=== PATIENT | female | born 1980 ===

== ENCOUNTER 2017-02-16 02:45 | Inpatient (IN) | payer OTHER ==
--- NOTE | ~2017-02-16 | HP ---
Unit #: [id number] #: [id number] Patient: KAVON DENNIS [id number] [address] [place], [place] [address] [id number] MR#: [id number] NAME: KAVON DENNIS ROOM: [facility] Age: 37 Sex: F Admission Date: 02/15/2017 : 1980 Attending Physician: Maddie Bustamante M.D. Primary Care Physician: No Primary Care Physician HISTORY AND PHYSICAL CHIEF COMPLAINT Abdominal pain, liver abnormalities. HISTORY This pleasant 37-year-old female was transferred from [place] emergency department for abdominal pain. The patient underwent a laparoscopic cholecystectomy last week at [facility]. I'm told that her bilirubin ranged between 1.3 to 1.8 around that time. HIDA scan preformed before the operation showed nonvisualization of the gallbladder, and gallbladder ultrasound showed multiple stones. Patient was discharged on Augmentin. States that after her discharge she began to experience generalized pruritus, which has worsened. Dark urine. Yesterday began to experience mid to left upper quadrant pain. Went back to [place] emergency department where her biliary was 2.4, alk phos 165. A call was made to her surgeon who requested that the patient be transferred to this facility and GI consultation be obtained. The patient denies excess amounts of Tylenol, alcohol, or use of any injectable drugs in the past. No previous history of liver disease. She is status post laparoscopic gastric bypass about ten years ago. PAST MEDICAL HISTORY 1. Previous history of AODM, now diet controlled. 2. Anxiety. 3. Gastric bypass, which was laparoscopically performed in [place]. 4. Laparoscopic cholecystectomy last week. ALLERGIES None. HOME MEDICATIONS Celexa 40 mg daily; Zyrtec 10 mg daily; multivitamin; Augmentin 875 mg b.i.d. for two more days. FAMILY HISTORY Negative for liver disease. SOCIAL HISTORY The patient lives with her and children. She stopped smoking eight years ago. Seldom drinks alcohol. REVIEW OF SYSTEMS Notable for increasing abdominal pain, pruritus, dark urine, previous Unit #: [id number] #: [id number] Patient: KAVON DENNIS history of diabetes, above mentioned surgery, anxiety. All other systems were reviewed and are otherwise negative. PHYSICAL EXAMINATION GENERAL: Very pleasant 37-year-old female currently in no acute distress. VITAL SIGNS: Prior to transfer, temperature 98, blood pressure 112/83, O2 saturation 100% on room air, pulse 61. HEENT: Eyes - PERRLA. Extraocular muscles are intact. Pharynx is benign. NECK: Supple without adenopathy or thyromegaly. CHEST: Clear. BACK: Without CVA tenderness. CARDIAC: Normal S1 and S2 without S3, S4 or murmur. ABDOMEN: Bowel sounds are present. Clean incision sites, which are healing. Patient is mildly tender in the epigastric and left upper quadrant without rebound or guarding. No hepatosplenomegaly or masses. EXTREMITIES: Without clubbing, cyanosis or edema. Pedal pulses are present. NEUROLOGIC: Patient is awake, alert, and oriented. Cranial nerves are intact. Equal strength throughout. DIAGNOSTIC STUDIES LABS: Prior to transfer - hematocrit 32.5, normal white count and platelet count. SMA 12 - glucose 134, bilirubin 2.4, alk phos 165, AST 52, ALT 100. Normal amylase and lipase. Urinalysis - specific gravity greater than 1.030 with 10-25 red cells, 2+ bilirubin noted on dipstick and positive blood in dipstick. However, patient currently is menstruating. IMAGING STUDIES: CT scan of the abdomen and pelvis essentially negative. Thickening of the endometrium of the uterus noted along with a likely left ovarian cyst. This is all likely related to the patent's menstrual cycle. She currently is menstruating. ASSESSMENT 1. Upper abdominal pain with elevated LFTs, status post laparoscopic cholecystectomy one week ago. Possibly this could represent a retained stone, versus some sort of hepatitis. 2. General pruritus, which more likely is related to antibiotic as opposed to hyperbilirubinemia as the bilirubin currently is 2.4 only. 3. Status post laparoscopic gastric bypass. 4. Anxiety and Celexa. 5. What appears to be a left ovarian cyst and increase endometrial lining likely related to the patient's menstrual cycle. However, I did tell the patient as an outpatient, it is recommended that she get a pelvic ultrasound. PLANS 1. IV fluids and supportive treatment. 2. Change Augmentin to cefotetan for two more days given intense pruritus. 3. Recheck labs this morning and check hepatitis profile. 4. GI and surgical consultation. 5. SCDs for DVT prophylaxis. 6. H2 cr. 7. 1. Unit #: [id number] #: [id number] Patient: KAVON DENNIS Dictated by Maddie Bustamante M.D. AML/ts TD: 02/16/2017 05:52 JOB #: [id number] HISTORY AND PHYSICAL Page 1 of 1 X Maddie Bustamante MD X HISTORY AND PHYSICAL
--- NOTE | ~2017-02-16 | OR ---
Unit #: [id number] #: [id number] Patient: KAVON DENNIS [id number] [address] [place], [place] [address] [id number] I MR#: [id number] NAME: KAVON DENNIS ROOM: [facility] Date of Procedure: 02/17/2017 Admission Date: 02/16/2017 Surgeon: Jake Carey M.D. : 1980 Attending Physician: Thea Lozano M.D. OPERATIVE REPORT PROCEDURES PERFORMED Esophagogastroduodenoscopy to anastomosis and small bowel loops. Endoscopic retrograde cholangiopancreatography not performed. INDICATIONS FOR PROCEDURE The patient was brought in for an EGD and ERCP for possible CBD stones and obstructive jaundice. MEDICATIONS Monitored anesthesia. POSTOPERATIVE FINDINGS 1. EGD exam shows a normal esophagus. 2. The patient has evidence of previous gastric bypass surgery with an anastomosis as well as 2 afferent and efferent loops. Anastomosis and loops were intact. Gastric mucosa appears normal. Esophagus was normal also. 3. ERCP could not be performed as there was no direct access to the ampulla. PLAN We will consider having an MRCP and if needed percutaneous access to the bile duct. DESCRIPTION OF PROCEDURE The patient was explained of the procedure, risks, and benefits along with risks and benefits of anesthesia. She was brought to the endoscopy room. Propofol anesthesia was given. Bite block was placed. The scope was passed down the mouth into the esophagus, stomach through the anastomosis into the two loops of the small bowel. Both loops of the small bowel were intact. Anastomosis was intact. Stomach shows normal mucosa. Esophagus was normal. Gently, the scope was pulled out. She tolerated it well. Dictated by... Neto Parekh/ирина TD: 02/18/2017 01:57 JOB #: [id number] Unit #: [id number] #: [id number] Patient: KAVON DENNIS OPERATIVE REPORT Page 1 of 1 X Jake Carey MD X PROCEDURE OPERATIVE NOTE
--- NOTE | ~2017-02-16 | CO ---
Unit #: [id number] #: [id number] Patient: KAVON DENNIS [id number] [facility]. [place] [id number] [facility]. [place], [place] [address] [id number] MR#: [id number] NAME: KAVON DENNIS ROOM: [facility] Age: 37 Sex: F Admission Date: 02/15/2017 : 1980 Attending Physician: Thea Lozano M.D. Primary Care Physician: No Primary Care Physician Consultation Date: 02/16/2017 CONSULTATION REPORT BRIEF SUMMARY The patient is a 37-year-old white female who is a week status post laparoscopic cholecystectomy for acute cholecystitis. This was done by Dr. Zapata at [facility] and she had done well up until yesterday when she developed significant right upper quadrant mid epigastric abdominal pain. She also noted that her urine was dark and almost dark as [employer]. She has had no fever, no chills and basically no other symptoms. She did have some slight nausea. She has had no diarrhea and no constipation. At the ER at [facility], she was noted to have increased total bilirubin to 2.4 with an alkaline phosphatase of 165. Her a.m. labs are pending presently. REVIEW OF SYSTEMS A 12-system review has been performed which is nonremarkable except for that in the present illness. PAST MEDICAL HISTORY Unchanged since her admission a week ago. PHYSICAL EXAMINATION VITAL SIGNS: The patient is afebrile. Pulse is 56. Vital signs are stable. GENERAL DESCRIPTION: The patient is a well developed 37-year-old white female in no acute distress. HEENT: Nonremarkable. NECK: Supple. CHEST: There is equal bilateral expansion with bilateral equal breath sounds. Lungs clear bilaterally. HEART: Regular rhythm without murmurs or gallops. There is no evidence of cardiomegaly clinically. ABDOMEN: Soft, mildly tender in the mid epigastrium and right upper quadrant without palpable mass or organomegaly. There is no gross abdominal distention. No guarding, rebound. Active bowel sounds present. Her wounds are clean and healing with solomon still in place and no evidence of any infection or herniation. EXTREMITIES: With full range of motion without limitation. There is no evidence of peripheral edema. BACK: No CVA tenderness. NEUROLOGIC: Grossly intact. DIAGNOSTIC STUDIES LABORATORY: Her urinalysis did show some hematuria. IMPRESSION Unit #: [id number] #: [id number] Patient: KAVON DENNIS Patient has elevated liver function tests status post laparoscopic cholecystectomy. That could be related along with her upper abdominal pain with the retained common duct stone. Would suggest a GI consult at this time and observation. CT scan revealed no evidence of any fluid collections in the subhepatic space or other abnormalities. Dictated by... Juancho Montesinos Jr. MRomie. RUDDY/eugene TD: 02/16/2017 09:53 JOB #: [id number] CONSULTATION REPORT Page 1 of 1 X Juancho Montesinos MD X CONSULTATION REPORT
--- NOTE | ~2017-02-16 | DS ---
Unit #: [id number] #: [id number] Patient: KAVON DENNIS [id number] [address] [place], [place] [address] [id number] MR#: [id number] NAME: KAVON DENNIS ROOM: 470 Age: 37 Sex: F Admission Date: 02/16/2017 : 1980 Discharge Date: 02/19/2017 Attending Physician: Thea Lozano M.D. Primary Care Physician: Primary Care Physician No DISCHARGE SUMMARY FINAL DIAGNOSES 1. Transaminitis and elevated bilirubin. 2. Anemia. SECONDARY DIAGNOSES 1. Anxiety previously. 2. Adult onset diabetes mellitus, diet controlled. 3. History of gastric bypass and status post laparoscopic cholecystectomy. CONSULTATIONS 1. [facility] - Dr. Webber 2. Gastroenterology - Dr. Carey [facility] COURSE The patient is a 37-year-old female, who presented with elevated liver function tests, pruritus, status post laparoscopic cholecystectomy. She was transferred here from an outside hospital for evaluation. She was seen in conjunction with GI. ERCP was attempted but this was unsuccessful. A MRCP was performed and it shows mild prominence of the common duct without evidence of choledocholithiasis or obstructed mass. It was thought that this represented physiologic change. Issues resolved symptomatically. She was seen by GI. Hepatitis panel was obtained. She was evaluated and deemed stable for discharge for outpatient management with symptomatic treatment. MEDICATIONS ON DISCHARGE Include: 1. Zofran 4 mg p.o. q.6 hourly p.r.n. 2. Benadryl 25 mg p.o. q.8 hourly p.r.n. 3. Bentyl 20 mg p.o. q.8 hourly p.r.n. 4. Celexa 40 mg p.o. daily 5. Zyrtec 10 mg p.o. daily 6. Multivitamin one tablet p.o. daily FOLLOWUP 1. Follow up with primary care physician in the next 3 to 5 days. 2. Follow up with GI, outpatient in about two weeks. CONDITION ON DISCHARGE She will be discharged in stable condition. Time spent coordinating discharge about twenty-three minutes. Unit #: [id number] #: [id number] Patient: KAVON DENNIS Dictated by... Neto Madison TD: 02/19/2017 11:47 JOB #: [id number] DISCHARGE SUMMARY Page 1 of 1 X Jaylon Gordon MD X DISCHARGE SUMMARY
--- NOTE | ~2017-02-16 | MR145 ---
[facility] A Service of [facility] RADIOLOGY TEXT RESULTS PATIENT: KAVON DENNIS LOCATION: [facility] 470 : 82 UNIT #: [id number] AGE: [address]: Thea Lozano MD SEX: F ORDER DR: [id number] [facility] [address] [facility]. [place], [place] [address] [id number] I MR#: [id number] Acc #: [id number] NAME: KAVON DENNIS : 1980 SEX: F STUDY DATE/TIME: 02/17/2017 16:10 UNIT: [facility] ROOM: [facility] STUDY DESCRIPTION: MR MRCP WWo Contrast Attending Physician: Thea Lozano M.D. Ordering Physician: Jake Carey M.D. Primary Care Physician: No Primary Care Physician MRI CENTER REPORT This report is preliminary unless electronic signature is present. EXAM MRI abdomen with and without contrast, MRCP protocol. INDICATIONS Cholecystectomy 1 week ago. Persistent upper abdominal pain since cholecystectomy. Elevated bilirubin level. PROCEDURE Multiplanar, multisequence MR imaging of the abdomen prior to and following 12 mL of MultiHance. COMPARISON Comparison CT from 02/15/2017. FINDINGS ABDOMEN WITHOUT CONTRAST: Patient is status post cholecystectomy. There is no fluid in the gallbladder fossa. The common duct measures 7 mm in diameter. There is no significant intrahepatic bile duct dilation. No evidence for obstructing stone or mass. Pancreatic duct nondilated. The spleen, kidneys, adrenal glands, pancreas, bowel loops have normal signal. ABDOMEN WITH CONTRAST: No abnormal enhancement in the abdomen. IMPRESSION 1. Previous cholecystectomy. Mild prominence of the common duct without evidence for choledocholithiasis or obstructing mass. This probably represents physiologic change. 2. Otherwise negative MRI of the abdomen. Dictated by... [facility] A Service [facility] RADIOLOGY TEXT RESULTS PATIENT: KAVON DENNIS LOCATION: [facility] 470 : 82 UNIT #: [id number] AGE: [address]: Thea Lozano MD SEX: F ORDER DR: Leon Medley M.D. THIS IS AN ELECTRONICALLY VERIFIED REPORT Leon Medley M.D. at 02/20/2017 9:45 AM EVELYN/joaquin TD: 02/17/2017 19:49 JOB #: [id number] MRI CENTER REPORT Page 1 of 1 COPY
[2017-02-16] MEDS ORDERED: CITALOPRAM HBR40 MG PO (03:10)
[2017-02-16] MEDS ORDERED: ZYRTEC10 M1 PO (03:10)
[2017-02-16] MEDS ORDERED: MULTIPLE VITAM1 EAC1 PO (03:11)
[2017-02-16] MEDS ORDERED: AUGMENTIN PO (03:11)
[2017-02-16] MEDS ORDERED: HYDROCODON-ACE1 EAC9 PO (03:12)
[2017-02-16 07:18] LABS: HEMATOCRIT 32.3 % (35.0-45.0); HEMOGLOBIN 10.5 gm/dL (12.0-16.0); MEAN CELL VOLUME 82.9 FL (83-96); MEAN CORPUSCULAR HEMOGLOBIN 26.8 PG (28-34); MEAN CORPUSCULAR HGB CONC 32.4 g/dL (30-36); MEAN PLATELET VOLUME 8.3 FL (6.5-11.5); RED BLOOD COUNT 3.9 X10e (3.90-5.30); RED CELL DISTRIBUTION WIDTH 15.3 % (11.0-15.5); WHITE BLOOD COUNT 6.5 X10e3 (4.0-10.5)
[2017-02-16 07:34] LABS: PARTIAL THROMBOPLASTIN TIME 23.3 SECONDS (23.5-31.3); PROTHROMBIN TIME (PATIENT) 10.7 SECONDS (9.6-11.5)
[2017-02-16 07:54] LABS: ALBUMIN SERUM 2.9 g/dL (3.5-5.0); BILIRUBIN,TOTAL 1.9 mg/dL (0.2-2.0); BUN/CREATININE RATIO 17.5; CALCIUM SERUM 8.6 mg/dL (8.4-10.2); CREATININE SERUM 0.4 mg/dL (0.6-1.4); POTASSIUM 3.4 mmol/L (3.5-5.1); PROTEIN TOTAL SERUM 5.9 g/dL (6.0-8.3)
[2017-02-17 04:11] LABS: BASOPHIL% 0.8 % (0-2.5); DIFF IND NO; EOSINOPHIL# 0.1 X10e3 (0-0.7); EOSINOPHIL% 1.4 % (0.0-7.0); HEMATOCRIT 32.7 % (35.0-45.0); HEMOGLOBIN 10.8 gm/dL (12.0-16.0); LYMPHOCYTE# 2.6 X10e3 (1.0-3.5); LYMPHOCYTE% 47.7 % (17.0-45.0); MEAN CELL VOLUME 82.6 FL (83-96); MEAN CORPUSCULAR HEMOGLOBIN 27.2 PG (28-34); MEAN CORPUSCULAR HGB CONC 32.9 g/dL (30-36); MEAN PLATELET VOLUME 8.5 FL (6.5-11.5); MONOCYTE# 0.6 X10e3 (0-1.0); MONOCYTE% 10.7 % (3.0-12.0); NEUTROPHIL# 2.2 X10e3 (1.5-7.1); NEUTROPHIL% 39.4 % (40-75); PLATELET COUNT 253 X10e3 (140-420); RED BLOOD COUNT 3.96 X10e (3.90-5.30); RED CELL DISTRIBUTION WIDTH 15.1 % (11.0-15.5); WHITE BLOOD COUNT 5.5 X10e3 (4.0-10.5)
[2017-02-17 04:34] LABS: ALBUMIN SERUM 3.2 g/dL (3.5-5.0); BILIRUBIN,TOTAL 2.4 mg/dL (0.2-2.0); CALCIUM SERUM 8.8 mg/dL (8.4-10.2); CREATININE SERUM 0.5 mg/dL (0.6-1.4); GLOM FILT RATE Estimated 125.4 mL/min (>60); POTASSIUM 3.6 mmol/L (3.5-5.1); PROTEIN TOTAL SERUM 6.5 g/dL (6.0-8.3)
[2017-02-18 03:46] LABS: BASOPHIL% 0.6 % (0-2.5); DIFF IND NO; EOSINOPHIL% 0.7 % (0.0-7.0); HEMOGLOBIN 11.1 gm/dL (12.0-16.0); LYMPHOCYTE# 2.2 X10e3 (1.0-3.5); LYMPHOCYTE% 33.4 % (17.0-45.0); MEAN CELL VOLUME 82.5 FL (83-96); MEAN CORPUSCULAR HEMOGLOBIN 26.8 PG (28-34); MEAN CORPUSCULAR HGB CONC 32.5 g/dL (30-36); MEAN PLATELET VOLUME 8.4 FL (6.5-11.5); MONOCYTE# 0.7 X10e3 (0-1.0); MONOCYTE% 10.8 % (3.0-12.0); NEUTROPHIL# 3.6 X10e3 (1.5-7.1); NEUTROPHIL% 54.5 % (40-75); PLATELET COUNT 282 X10e3 (140-420); RED BLOOD COUNT 4.13 X10e (3.90-5.30); RED CELL DISTRIBUTION WIDTH 15.5 % (11.0-15.5); WHITE BLOOD COUNT 6.7 X10e3 (4.0-10.5)
[2017-02-18 04:10] LABS: ALBUMIN SERUM 3.3 g/dL (3.5-5.0); BILIRUBIN,TOTAL 2.3 mg/dL (0.2-2.0); CALCIUM SERUM 8.6 mg/dL (8.4-10.2); CREATININE SERUM 0.5 mg/dL (0.6-1.4); GLOM FILT RATE Estimated 125.4 mL/min (>60); POTASSIUM 3.9 mmol/L (3.5-5.1); PROTEIN TOTAL SERUM 6.5 g/dL (6.0-8.3)
[2017-02-18 07:32] LABS: HA AB IGM (HEPPAN) Nonreactive (()); HB CORE AB IGM (HEPPAN) Nonreactive (Nonreactive); HB S AG (HEPPAN) Nonreactive (Nonreactive); HEP C AB (HEPPAN) Nonreactive (Nonreactive); HEP C AB SIGNAL TO CUTOFF 0.07 ratio (<1.00)
[2017-02-19 02:16] LABS: ALBUMIN SERUM 3.2 g/dL (3.5-5.0); BILIRUBIN,TOTAL 2.6 mg/dL (0.2-2.0); BUN/CREATININE RATIO 21.66; CALCIUM SERUM 8.9 mg/dL (8.4-10.2); CREATININE SERUM 0.6 mg/dL (0.6-1.4); GLOM FILT RATE Estimated 118.1 mL/min (>60); POTASSIUM 4.2 mmol/L (3.5-5.1); PROTEIN TOTAL SERUM 6.5 g/dL (6.0-8.3)
[2017-02-19] MEDS ORDERED: ZOFRAN PO (11:14)
[2017-02-19] MEDS ORDERED: FAMOTIDINE PO (11:15)
[2017-02-19] MEDS ORDERED: BENADRYL25 M3 PO (11:16)
[2017-02-19] MEDS ORDERED: BENTYL20 MG PO (11:16)
[2017-02-22 01:26] LABS: HA AB IGM (HEPPAN) Nonreactive (()); HB CORE AB IGM (HEPPAN) Nonreactive (Nonreactive); HB S AG (HEPPAN) Nonreactive (Nonreactive); HEP C AB (HEPPAN) Nonreactive (Nonreactive); HEP C AB SIGNAL TO CUTOFF 0.09 ratio (<1.00)
== END 2017-02-19 12:57 | disposition home or self-care (01) | DRG 392 ==
LOC: C4C 02:45
PROVIDERS: Internal Medicine; Surgery
PROC: 0DJ08ZZ Inspection of Upper Intestinal Tract, Via Natural or Artificial Opening Endoscopic (ICD-10-PCS; principal; 2017-02-17 11:05)
DX: R10.9 Unspecified abdominal pain (principal); E44.0 Moderate protein-calorie malnutrition; F41.9 Anxiety disorder, unspecified; E11.9 Type 2 diabetes mellitus without complications; R31.9 Hematuria, unspecified; D64.9 Anemia, unspecified; Z90.49 Acquired absence of other specified parts of digestive tract; Z98.84 Bariatric surgery status; L29.9 Pruritus, unspecified; N83.202 Unspecified ovarian cyst, left side; R74.0 Nonspecific elevation of levels of transaminase and lactic acid dehydrogenase [LDH]
CPT/HCPCS: 74183; 80053; 80074; 82150; 82248; 83690; 85025; 85027; 85610; 85730; A9577; J1610; J2250; J2270; J2405